=== PATIENT | male | born 1990 | race Two or more races ===

== ENCOUNTER 2020-12-13 07:04 | Emergency (ER) | payer MEDICAID ==
[~2020-12-13] VITALS: Ht 188 cm; Wt 199.6 kg
[2020-12-13 07:09] VITALS: BP 146/75
[2020-12-13] MEDS ORDERED: KETOROLAC TROMETHAMINE INJ 30 MG/ML VIAL ONE (07:22)
[2020-12-13] MEDS ORDERED: CAPS1ADH5 TP (07:27)
[2020-12-13] MEDS ORDERED: IBUP-1957 PO (07:27)
[2020-12-13] MEDS ORDERED: KETOROLAC TROMETHAMINE INJ 60 MG/2 ML VIAL IM ONE (07:30)
--- NOTE | 2020-12-13 08:41 | NUR ---
Patient discharged to home in stable condition. Written and verbal after care instructions given. Patient verbalizes understanding of instruction.
== END 2020-12-13 08:40 | disposition home or self-care (01) ==
LOC: ER 07:06
DX: M54.50 Low back pain, unspecified (principal); Z60.2 Problems related to living alone
CPT/HCPCS: 96372; 99283; J1885